=== PATIENT | male | born 1965 | race Caucasian/White ===

== ENCOUNTER → 2018-08-13 | Outpatient (CLI) | payer BC ==
--- NOTE | 2018-08-13 15:05 | KCIC ---
CT ABDOMEN PELVIS WO CONTRAST Indication: Left abdominal pain. Microscopic hematuria. Exposure: One or more of the following individualized dose reduction techniques were utilized for this examination: 1. Automated exposure control 2. Adjustment of the mA and/or kV according to patient size 3. Use of iterative reconstruction technique. Comparison: None are available. Technique: No intravenous contrast given. No oral contrast per request. Findings: Evaluation of solid viscera, bowel and vasculature is compromised by the noncontrast technique. Lung bases are clear. Liver and spleen are not enlarged. Pancreas unremarkable. No evidence of adrenal mass. Hypodense lesion of the lateral left kidney measures 2 Hounsfield units compatible with a cyst. No hydronephrosis. Tiny calcification or nonobstructive calculus just medial to this cyst. No ureteric calculus or dilatation. Gallbladder surgically absent. The aorta is mildly calcified without aneurysm. No significant lymph node enlargement. No significant small bowel distention no evidence of acute colitis. The appendix is normal. No ascites or pneumoperitoneum is identified. Central prostatic calcifications. Urinary bladder is not distended, may account for mild wall thickening. Degenerative changes of the spine, most severe at L4/L5. There is endplate irregularity at multiple levels likely developmental. There is spinal lateral recess and neural foraminal stenosis at L4-L5. There is also mild canal narrowing at other levels, may include a congenital component. No aggressive bone destruction. IMPRESSION: 1. Tiny calcification or nonobstructive calculus in the left kidney. No hydronephrosis or ureteric calculus. 2. Left renal lesion compatible with a cyst. 3. Degenerative spondylosis with stenosis, particularly at L4-L5. Electronically signed by: Jasmeet Handley MD (08/13/2018 3:02 PM) [facility]
== END | disposition home or self-care (01) ==
LOC: KCIC CT 12:43
PROVIDERS: ATTEND Family Medicine
DX: N20.0 Calculus of kidney (principal); M47.816 Spondylosis without myelopathy or radiculopathy, lumbar region; M48.061 Spinal stenosis, lumbar region without neurogenic claudication; M79.18 Myalgia, other site; R10.2 Pelvic and perineal pain
CPT/HCPCS: 74176

== ENCOUNTER → 2018-08-18 | Outpatient (CLI) | payer BC ==
--- NOTE | 2018-08-18 16:42 | RAD ---
MRI of the cervical spine without contrast 08/18/2018 CLINICAL HISTORY: Neck pain with bilateral arm weakness. TECHNIQUE: Unenhanced T1-weighted, T2-weighted and inversion recovery sagittal and gradient echo and T2-weighted axial images of the cervical spine were obtained. FINDINGS: Mild lateral curvature of the cervical spine is seen convex to the right. There is straightening of the normal cervical lordosis. Degenerative signal changes are seen involving all of the disks of the cervical spine. Degenerative signal changes are seen within the marrow surrounding these discs. Loss of height of the C3-4, C4-5, C5-6 and C6-7 discs is noted. Faint increased signal intensity is seen involving the right aspect of the cervical spinal cord on the T2-weighted and inversion recovery images at the C4-5 level consistent with cord edema or myelomalacia. This measures 8 mm in greatest diameter. At the C2-3 disc space is a mild generalized disc bulge. Superimposed on this disc bulge is a left paracentral focal disc protrusion. This measures 3 mm in AP diameter. Degenerative changes are seen involving the uncovertebral and facet joints bilaterally. These findings result in mild left-sided central spinal canal stenosis without evidence of cord impingement. No neural foraminal stenosis is seen. At the C3-4 disc space there is a moderate generalized disc bulge. Degenerative changes are seen involving the uncovertebral and facet joints, left greater than right. These findings efface the anterior and posterior CSF resulting in moderate central spinal canal stenosis with moderate cord impingement. Severe left greater than right neural foraminal stenosis is seen. At the C4-5 disc space there is a moderate generalized disc bulge. This is eccentric to the right. Degenerative changes are seen involving the uncovertebral and facet joints, right greater than left. These findings when combined result in moderate to severe right greater than left central spinal canal stenosis with moderate to severe right greater than left cord impingement. Moderate bilateral neural foraminal stenosis is seen. At the C5-6 disc space there is a mild to moderate generalized disc bulge. Degenerative changes are seen involving the uncovertebral and facet joints, right greater than left. These findings result in mild central spinal canal stenosis without evidence of cord impingement. Mild bilateral neural foraminal stenosis is seen. At the C6-7 disc space there is a mild generalized disc bulge. Superimposed on this disc bulge is a central/right paracentral disc osteophyte complex. This measures 3 mm in AP diameter. Degenerative changes are seen involving the uncovertebral and facet joints, right greater than left. These findings result in mild right-sided central spinal canal stenosis without evidence of cord impingement. Mild right neural foraminal stenosis is seen. The left neural foramen is patent. At the C7-T1 disc space there is a moderate generalized disc bulge. Degenerative changes are seen involving the uncovertebral and facet joints bilaterally. These findings do not result in significant central spinal canal stenosis. Mild to moderate bilateral neural foraminal stenosis is seen. IMPRESSION: Degenerative changes are seen throughout the cervical spine. These findings result in multilevel central spinal canal and neural foraminal stenosis of varying severity as discussed above. Increased signal intensity is seen involving the right aspect of the cervical spinal cord at the C4-5 level consistent with cord edema/myelomalacia. Electronically signed by: Goran Castaneda MD (08/18/2018 4:39 PM) [facility]
== END | disposition home or self-care (01) ==
LOC: MRI 15:18
PROVIDERS: ATTEND Family Medicine
DX: M50.21 Other cervical disc displacement, high cervical region (principal); M48.03 Spinal stenosis, cervicothoracic region; M47.813 Spondylosis without myelopathy or radiculopathy, cervicothoracic region; M25.78 Osteophyte, vertebrae; G24.9 Dystonia, unspecified
CPT/HCPCS: 72141

== ENCOUNTER → 2018-09-05 | Outpatient (CLI) | payer BC ==
[~2018-09-05] VITALS: Ht 182.9 cm; Wt 95.3 kg
[~2018-09-05] MED LIST: BACL10TA PO; GABA600T7 PO; LISI-338 PO; TRIH5TAB2 PO
[2018-09-05] MEDS: REGADENOSON 0.4 MG/5 ML DISP.SYRIN. IV ONE (09:39)
--- NOTE | 2018-09-05 11:32 | RAD ---
MR#: [id number] Date of Study: 09/05/2018 Ordering Physician: CINDY GERMAN, Referring Physician: JESSA GIL Tech: IVIS Soria ARRT (R) (N) APPROVED REPORT Test Type: Pharmacological Stress Nurse/Tech: Amy Larsen R.N. Test Indications: CASTILLO Cardiac History: HTN, athma Medications: See Electronic Medical Record Medical History: See Electronic Medical Record Resting ECG: SR Resting Heart Rate: 75 bpm Resting Blood Pressure: 106/75mmHg Pretest Chest Pain: No chest pain Nurse/Tech Notes S1S2, lungs CTA Consent: The procedure was explained to the patient in lay terms. Informed consent was witnessed. Mars eout was entered into [employer]). History and Stress Test performed by IVIS Soria ARRT (R) (N) Pharm. Details Pharmacologic stress testing was performed using 0.4mg per 5ml of regadenoson given intravenously ove r 7-10 seconds. Stress Symptoms slight SOA, feels "exhausted" POST EXERCISE Reason for Termination: Infusion complete Max HR: 109 bpm Max Blood Pressure: 151/85mmHg Blood Pressure response to exercise: Normal blood pressure response during stress. Heart Rate response to exercise: wnl Chest Pain: No. Arrhythmia: No. ST Change: No. INTERPRETATION Stress EKG Conclusion: Baseline EKG showed sinus rhythm. No ischemic changes at peak stress. No arr hythmias. Imaging Protocol IMAGE PROTOCOL: Rest Tc-99m/stress Tc-99m 1 day Rest: Stress: Viability: Radiopharm.Tc99m [id number] Sestamibi Dose10.5mCi 33mCi Img Date 09/05/2018 09/05/2018 Inj-Img [id number]. 60min. Rest Admin Site:IV - Right AntecubitalAdministrator:IVIS Soria ARRT (R)(N) Stress Admin Site: IV - Right AntecubitalAdministrator: RT Lucio (R)(N) STRESS DATA End Diast. Vol.112.0mlAv. Heart Rate86.0bpm End Syst. Vol.26.0mlCO Index BSA0.0L/min Myocardial Iure221.0gEject. Inntfuvd36.0% Stress Rates Pk. Fill Rate3.64EDV/secLVtime Pk. Fill 183.28msec Pk. Empty Rate4.99ESV/secLVtime Pk. Crwop872.53msec 1/3 Pk. Fill1.78EDV/sec Stress Scores Regional WT0.00Summed WT0.00 Regional WM0.00Summed WM2.00 Study quality was good. Left Ventricular size was Normal at Rest and Stress. Lung uptake was . Left Ventricular ejection fraction is 77%. The rest and stress images show normal perfusion, normal contraction and thickening. LV Perf. Quant 17 Seg. SSS0.00 17 Seg. SRS0.00 17 Seg. SDS0.00 Stress Defect Extent (% LAD)0.00Rest Defect Extent (% LAD)0.00Rev. Defect Extent (% LAD)0.00 Stress Defect Extent (% LCX) 0.00Rest Defect Extent (% LCX)0.00Rev. Defect Extent (% LCX)0.00 Stress Defect Extent (% RCA)0.00Rest Defect Extent (% RCA)0.00Rev. Defect Extent (% RCA)0.00 Stress Defect Extent (% LUIS CARLOS)0.00Rest Defect Extent (% LUIS CARLOS)0.00Rev. Defect Extent (% LUIS CARLOS)0.00 Conclusion 1. Regadenoson cardioisotope stress test did not show any evidence of ischemia or infarct. 2. Normal left ventricular systolic function with ejection fraction calculated at 77%. 3. Low risk for cardiac events. Signed by : Cindy German, Electronically Approved : 09/05/2018 11:32:10
== END | disposition home or self-care (01) ==
LOC: NM 08:07
PROVIDERS: ATTEND Internal Medicine Cardiovascular Disease
DX: R06.09 Other forms of dyspnea (principal); I10 Essential (primary) hypertension; J45.909 Unspecified asthma, uncomplicated
CPT/HCPCS: 78452; 93017; A9500; J2785

== ENCOUNTER → 2018-09-08 | Outpatient (CLI) | payer BC ==
[~2018-09-08] MED LIST changes: +BUPR150T15 PO; +GABA300C18 PO; +IOHEXOL 180 MG/ML 10 ML VIAL. ONE; +methylPREDNISolone ACETATE 40 MG/ML VIAL. ONE; +methylPREDNISolone ACETATE 80 MG/ML VIAL. ONE
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
== END ==
LOC: PNCL 11:00
PROVIDERS: ATTEND Anesthesiology
DX: M50.123 Cervical disc disorder at C6-C7 level with radiculopathy (principal); I10 Essential (primary) hypertension; K21.9 Gastro-esophageal reflux disease without esophagitis; Z87.39 Personal history of other diseases of the musculoskeletal system and connective tissue; Z90.49 Acquired absence of other specified parts of digestive tract; Z98.890 Other specified postprocedural states; Z72.89 Other problems related to lifestyle; Z87.891 Personal history of nicotine dependence
CPT/HCPCS: 62321; J1030; J1040; Q9965

== ENCOUNTER → 2018-10-03 | Outpatient (CLI) | payer BC ==
--- NOTE | 2018-10-04 02:27 | PAIN ---
DATE OF SERVICE: 10/03/2018 DIAGNOSES: 1. Cervical radiculopathy with cervical degenerative disk disease and cervical spinal stenosis. 2. Lumbar radiculopathy with lumbar degenerative disk disease. HISTORY OF PRESENT ILLNESS: The patient is a 53-year-old male who returns for followup status post cervical epidural steroid injection x 1. The patient reports only minimal decrease in the pain with some change in the paresthesias he was having in his upper extremities, slightly less intense on the left hand, but still intense on the right hand. The patient reports his left hand, however, is the worst. The patient reports the pain is aching, sharp, shooting, tight and dull and alternating in the neck and in the arm. It is radiating with some tingling, cramping and stabbing sensation in the arms as well, again worse on the left side than the right. The patient reports it is a 10 on a scale of 10 at its worst in the last week, 8 on average, 8 at its least, and is an 8 today. The patient reports no new motor or sensory deficits, no new bowel or bladder incontinence. It awakens him from sleep several times during the night especially if he is lying on his left side. The patient reports no new changes. No new bowel or bladder incontinence or other complaints. PHYSICAL EXAMINATION: VITAL SIGNS: The patient's blood pressure is 146/87, pulse 84, respirations 18, temperature 98.6 degrees Fahrenheit. Height 5 feet 10 inches, weight is 219 pounds. GENERAL: The patient is awake, alert, oriented, appropriate, very pleasant demeanor. HEENT: Head shows normocephalic, atraumatic. Extraocular movements are intact and symmetrical. Oral cavity: Mucous membranes moist and pink. Dentition is intact. NECK: Shows anterior throat supple without palpable lymphadenopathy noted. Swallow reflex symmetrical. CHEST: Shows normal on inspection. Breath sounds clear to auscultation bilaterally. HEART: Shows S1, S2 clear. No murmurs auscultated. ABDOMEN: Soft, nontender, nondistended. No palpable organomegaly is noted. No rebound or guarding is demonstrated. BACK: Shows spine grossly in the midline. Normal appearing thoracic kyphosis and cervical lordotic curvature. Lumbar lordotic curvature is slightly flattened as well. Cervical paraspinous muscle shows symmetrical on inspection. With palpation, has some moderate tenderness throughout the upper, middle and lower distribution of paraspinous muscles diffusely with firm and somewhat tight musculature bilaterally. This is true in the superomedial trapezius as well in both right and left without specific trigger points or radiation. The patient shows guarded rotational motion with some limited extension, but good forward flexion. Right and left lateral rotation is guarded as well with the patient rotating his upper body to move his head with the cervical rotation. EXTREMITIES: Upper extremities show deep tendon reflexes 2+ in the biceps and triceps tendons. Motor exam is approximately 3-4 on a scale of 5 with international manager strength in right and left upper extremities. Peripheral pulses are 2+ radial. No peripheral edema is noted. Options were discussed with the patient. The patient's old chart was reviewed as was his current medication regimen updated. Current review of systems updated today as well. We will proceed with a second cervical epidural steroid injection today with fluoroscopic guidance. Risks were again discussed including, but not limited to bleeding, infection, possibility of epidural hematoma, subsequent neurological compromise, dural puncture, headaches, spinal cord and/or nerve damage, side effects of steroid medication and poor results regarding pain control. The patient understands and wished to proceed. The patient will return to clinic in approximately 2 weeks for followup, was counseled on return appointment, activity level and side effects to be aware of. DIAGNOSES: Cervical radiculopathy with cervical degenerative disk disease and cervical spinal stenosis. PROCEDURE: Cervical epidural steroid injection, translaminar approach C6-C7 level using C-arm fluoroscopic guidance under sterile prep and drape using local anesthetic. MEDICATION INJECTED: A total of 120 mg Depo-Medrol plus 5 mL of preservative-free normal saline and 2 mL of contrast. CONDITION AT DISCHARGE: Stable. The patient tolerated the procedure well, had no complications. SAROJ SALDANA MD DR: EVIN/luis JOB#: [id number] / [id number]
== END ==
LOC: PNCL 09:54
PROVIDERS: ATTEND Anesthesiology
DX: M50.123 Cervical disc disorder at C6-C7 level with radiculopathy (principal); M48.02 Spinal stenosis, cervical region; M51.16 Intervertebral disc disorders with radiculopathy, lumbar region
CPT/HCPCS: 62321; J1030; J1040; Q9965

== ENCOUNTER → 2018-10-07 | Outpatient (CLI) | payer BC ==
[~2018-10-07] MED LIST changes: -IOHEXOL 180 MG/ML 10 ML VIAL. ONE; -methylPREDNISolone ACETATE 40 MG/ML VIAL. ONE; -methylPREDNISolone ACETATE 80 MG/ML VIAL. ONE
--- NOTE | 2018-10-07 11:08 | RAD ---
MR#: [id number] Date of Study: 10/07/2018 Ordering Physician: CINDY GERMAN, Referring Physician: CINDY GERMAN, Tech: SERGO Lozada, RDDC, T APPROVED REPORT Patient Location : OUT-PATIENT Indications Lower Extremity Pain : Bilateral Risk Factors HTN Findings Grayscale images of the bilateral saphenofemoral junctions do not reveal any obvious evidence of thro mbus. The right great saphenous vein measures 7 mm and the left great saphenous vein measures 8.2 mm Bilateral greater saphenous veins do not show any evidence of reflux. Bilateral lesser saphenous veins do not show any evidence of reflux Critical Notification Critical Value: No <Conclusion> 1. Negative for reflux in the bilateral greater and lesser saphenous veins Signed by : Dhruv Marshall, Electronically Approved : 10/07/2018 11:07:27
--- NOTE | 2018-10-07 11:10 | RAD ---
MR#: [id number] Date of Study: 10/07/2018 Ordering Physician: CINDY GERMAN, Referring Physician: CINDY GERMAN, Tech: SERGO Lozada, RDMS, RVT APPROVED REPORT Patient Location: OUT-PATIENT Indications Rest Pain:Bilaterally Risk Factors Hypertension VELOCITY AND DOPPLER WAVEFORM ANALYSIS RIGHT cm/secWaveformSeverity LEFT cm/secWaveform Severity pCFA 98.3TriphasicpCFA 103.7Triphasic Prof Fem Art. 55.5Prof Fem Art. 66.2 Fem Art Prox. 91.8TriphasicFem Art Prox. 79.3Triphasic Fem Art Mid. 103.4TriphasicFem Art Mid. 82.6Triphasic Fem Art Dist. 55.0TriphasicFem Art Dist. 73.3Triphasic Pop Art(Fossa) 61.1TriphasicPop Art(AK) 68.8Triphasic LANGUAGE ARTS TEACHER Dist. 68.8TriphasicPTA Dist. 62.6Triphasic Per Art Dist.40.5TriphasicPer Art Dist.42.1Triphasic DAYSI Dist. 65.7TriphasicATA Dist. 55.3Triphasic DPA 76MonophasicDPA 85Monophasic Findings Grayscale images the bilateral lower extremity arterial vessels reveals mild diffuse plaque. Normal spectral waveforms and velocities are obtained from the common femoral arteries to the below-k nee vessels. Normal velocities in the dorsalis pedis arteries with monophasic velocities likely sugge stive of chronic calcific disease. No high-grade focal stenosis. Critical Notification Critical Value: No <Conclusion> 1. Negative for any significant lower extremity arterial disease Signed by : Dhruv Marshall, Electronically Approved : 10/07/2018 11:09:09
== END | disposition home or self-care (01) ==
LOC: US 09:19
PROVIDERS: ATTEND Internal Medicine Cardiovascular Disease
DX: I70.293 Other atherosclerosis of native arteries of extremities, bilateral legs (principal)
CPT/HCPCS: 93925; 93970

== ENCOUNTER → 2018-10-07 | Outpatient (CLI) | payer BC ==
--- NOTE | 2018-10-07 14:20 | CARD ---
MR#: [id number] Date of Study: 10/07/2018 Ordering Physician: CINDY GERMAN, Referring Physician: CINDY GERMAN Tech: Tamia Benoit RDCS APPROVED REPORT EXAM: Two-dimensional and M-mode echocardiogram with Doppler and color Doppler. Other Information Quality : Good INDICATION Dyspnea on Exertion 2D DIMENSIONS RVDd2.9 (2.9-3.5cm)Left Atrium(2D)3.6 (1.6-4.0cm) IVSd0.9 (0.7-1.1cm)Aortic Root(2D)2.8 (2.0-3.7cm) LVDd4.7 (3.9-5.9cm)LVOT Diameter2.0 (1.8-2.4cm) PWd0.9 (0.7-1.1cm)LVDs3.0 (2.5-4.0cm) FS (%) 35.6 %SV65.8 ml LVEF(%)60.0 (>50%) Aortic Valve AoV Peak Nik.171.0cm/sAoV VTI28.4cm AO Peak GR.11.7mmHgLVOT Peak Nik.174.9cm/s AO Mean GR.7mmHgAVA (VMAX)3.24cm2 JACINTO (VTI)3.40cm2 Mitral Valve MV E Xemmlgbm840.4cm/sMV DECEL AYHU506xb MV A Jabmbgyq445.8cm/sE/A Ratio1.0 Pulmonary Vein S1 Weuypobl49.7cm/sD2 Knnjaiba26.3cm/s LEFT VENTRICLE The left ventricle is normal size. There is normal left ventricular wall thickness. The left ventricu lar systolic function is normal. The Ejection Fraction is 60-65%. There is normal LV segmental wall m otion. The left ventricular diastolic function and filling is normal for age. RIGHT VENTRICLE The right ventricle is normal size. The right ventricular systolic function is normal. ATRIA The left atrium size is normal. The right atrium size is normal. The interatrial septum is intact wit h no evidence for an atrial septal defect or patent foramen ovale as noted on 2-D or Doppler imaging. AORTIC VALVE The aortic valve is calcified but opens well. Doppler and Color Flow revealed no significant aortic r egurgitation. There is no significant aortic valvular stenosis. MITRAL VALVE The mitral valve is calcified but opens well. There is no evidence of mitral valve prolapse. There is no mitral valve stenosis. Doppler and Color Flow revealed no mitral valve regurgitation noted. TRICUSPID VALVE The tricuspid valve is normal in structure and function. Doppler and Color Flow revealed no tricuspid valve regurgitation noted. There is no tricuspid valve stenosis. PULMONIC VALVE The pulmonic valve is not well visualized. Doppler and Color Flow revealed no pulmonic valvular regur gitation. There is no pulmonic valvular stenosis. GREAT VESSELS The aortic root is normal in size. The ascending aorta is normal in size. The IVC is normal in size a nd collapses >50% with inspiration. PERICARDIAL EFFUSION There is no evidence of significant pericardial effusion. Critical Notification Critical Value: No <Conclusion> The left ventricular systolic function is normal. The Ejection Fraction is 60-65%. There is normal LV segmental wall motion. There is no evidence of significant pericardial effusion. Signed by : Cindy German, Electronically Approved : 10/07/2018 14:19:30
== END | disposition home or self-care (01) ==
LOC: ECHO 13:00
PROVIDERS: ATTEND Internal Medicine Cardiovascular Disease
DX: I08.0 Rheumatic disorders of both mitral and aortic valves (principal)
CPT/HCPCS: 93306

== ENCOUNTER → 2018-10-20 | Outpatient (CLI) | payer BC ==
[~2018-10-20] MED LIST changes: +GABA-585 PO; +METF500T16 PO
--- NOTE | 2018-10-20 21:07 | PAIN ---
DATE OF SERVICE: 10/20/2018 PROGRESS NOTE FOR PAIN CLINIC DIAGNOSES: 1. Cervical radiculopathy with cervical degenerative disk disease and cervical spinal stenosis. 2. Lumbar radiculopathy with lumbar degenerative disk disease. HISTORY OF PRESENT ILLNESS: The patient is a 53-year-old male who returns for followup status post cervical epidural steroid injections x 2. The patient reports only minimal decrease in pain, and in fact, the pain has been getting worse after his second injection in the base of the neck and shoulders and tremor increased in his left arm and hand, also pain in the right shoulder across the back, in the low part of the neck and also in the low back and legs, but his main complaint is neck and arm pain. The patient reports it is a 10 on a scale of 10 at all times, average, worst and least; sharp, dull type, shooting, described as tingling, burning, cramping and stabbing; constant, becoming severe and unbearable, disturbing his sleep, sporadically awakening him from sleep. The patient reports no loss of motor function but significant tremor increasing in the left arm as well as pain in both hands with numbness, pain and tingling progressing and becoming more intolerable in both the upper extremities. The patient reports no other changes. PHYSICAL EXAMINATION: VITAL SIGNS: The patient's blood pressure 131/92, pulse 93, respirations 16, temperature 98.0 degrees Fahrenheit and weight is 217 pounds. GENERAL: The patient is awake, alert, oriented, appropriate, very pleasant demeanor. HEENT: Shows normocephalic, atraumatic. Extraocular movements are intact and symmetrical. Oral cavity: Mucous membranes moist and pink. Dentition is intact. NECK: Shows anterior throat supple. CHEST: Shows normal on inspection. Breath sounds clear to auscultation bilaterally. HEART: Shows S1, S2 clear. No murmurs auscultated. ABDOMEN: Soft, nontender and nondistended. BACK: Shows spine grossly in the midline. Cervical paraspinous muscle shows symmetrical on inspection. On palpation, some moderate tenderness diffusely throughout the upper, middle and lower distribution of the paraspinous muscles. The patient has good rotational motion of cervical spine, both laterally as well as extension and flexion without significant increase in pain with any rotation. EXTREMITIES: Upper extremities show deep tendon reflexes 2+ in the biceps and triceps tendons. Motor exam is approximately 3-4 on a scale of 5 with bilateral stocklayer strength and 3-4/5 with bicep and tricep flexion as well and symmetrical. Peripheral pulses are 2+ in radial distribution. No peripheral edema is noted. Options were discussed with the patient. The patient's old chart was reviewed as his current medication regimen updated. Current review of systems updated today as well. We will make referral back for neurosurgical evaluation as the patient has seen Dr. Dinesh Jenkins once before, would like to see him again as he is not getting better with the current plan and treatment after 2 cervical epidural steroid injections. In fact, the pain is somewhat worse on the left side. We will make these arrangements for him and the patient will followup as scheduled. SAROJ SALDANA MD DR: EVIN/luis JOB#: [id number] / [id number]
== END | disposition home or self-care (01) ==
LOC: PNCL 10:27
PROVIDERS: ATTEND Anesthesiology
DX: M51.16 Intervertebral disc disorders with radiculopathy, lumbar region (principal); M50.10 Cervical disc disorder with radiculopathy, unspecified cervical region; M48.02 Spinal stenosis, cervical region
CPT/HCPCS: G0463

== ENCOUNTER → 2018-12-01 | Outpatient (CLI) | payer BC ==
[~2018-12-01] MED LIST changes: +CANN100S PO; +NAPR220T70 PO; +OMEP20CA10 PO
[2018-12-01 09:57] LABS: BASO % 1 % (0-3); EOS # 0.2 x10^3/uL (0.0-0.7); EOS % 3 % (0-3); HEMATOCRIT 44.6 % (39.0-53.0); HEMOGLOBIN 15.9 g/dL (13.0-17.5); LYMPH # 2.6 x10^3/uL (1.0-4.8); LYMPH % 35 % (24-48); MEAN CORPUSCULAR HEMOGLOBIN 34 pg (25-35); MEAN CORPUSCULAR HGB CONC 36 g/dL (31-37); MEAN CORPUSCULAR VOLUME 95 fL (79-100); MONO # 0.6 x10^3/uL (0.0-1.1); MONO % 8 % (0-9); NEUT # 4.2 x10^3/uL (1.8-7.7); NEUT % 55 % (31-73); PLATELET COUNT 264 x10^3/uL (140-400); RED BLOOD COUNT 4.71 x10^6/uL (4.30-5.70); WHITE BLOOD COUNT 7.6 x10^3/uL (4.0-11.0)
[2018-12-01 10:10] LABS: ALBUMIN 3.9 g/dL (3.4-5.0); ALBUMIN/GLOBULIN RATIO 1.2 (1.0-1.7); CREATININE 0.8 mg/dL (0.7-1.3); GFR 101.1; POTASSIUM 4.2 mmol/L (3.5-5.1); TOTAL BILIRUBIN 0.4 mg/dL (0.2-1.0); TOTAL PROTEIN 7.2 g/dL (6.4-8.2)
== END | disposition home or self-care (01) ==
LOC: SURGPAT 08:50
PROVIDERS: ATTEND Neurological Surgery
DX: Z01.818 Encounter for other preprocedural examination (principal); M48.02 Spinal stenosis, cervical region; M54.12 Radiculopathy, cervical region
CPT/HCPCS: 36415; 80053; 85025; 87641

== ENCOUNTER 2018-12-19 06:52 | Observation (INO) | payer BC ==
[~2018-12-19] VITALS: Ht 177.8 cm; Wt 102.6 kg
[2018-12-19] VITALS (9 sets, daily range): BP systolic 138–172; BP diastolic 85–105
[~2018-12-19 06:52] MED LIST changes: +BACITRACIN 50,000 UNIT in IV NORMAL SALINE 1000ML BAG 1,000 ML IRR ONE
[2018-12-19] MEDS ORDERED: IV RINGERS,LACTATED 1000ML 1,000 ML IV SCH (07:00)
[2018-12-19] MEDS ORDERED: fentaNYL PF VIAL 100 MCG/2 ML VIAL IV PRN ×2 (07:00)
[2018-12-19] MEDS ORDERED: LIDOCAINE 1% PF 2 ML VIAL. ID PRN (07:00)
[2018-12-19] MEDS ORDERED: ONDANSETRON PF 4 MG/2 ML VIAL. IV PRN ×2 (07:00→10:30)
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
[2018-12-19] MEDS ORDERED: THROMBIN TOPICAL 20,000 UNIT SPRAY.SYRN KIT TP ONE (07:07)
[2018-12-19] MEDS ORDERED: GELATIN SPONGE SIZE 12-7MM SPONGE. ONE ×2 (07:07)
[2018-12-19] MEDS ORDERED: PROPOFOL 20 ML IV ONE (07:59)
[2018-12-19] MEDS ORDERED: REMIFENTANIL 2 MG VIAL. IV ONE (07:59)
[2018-12-19] MEDS ORDERED: ONDANSETRON PF 4 MG/2 ML VIAL. ONE (07:59)
[2018-12-19] MEDS ORDERED: LIDOCAINE 2% PF 5 ML VIAL. ONE (07:59)
[2018-12-19] MEDS ORDERED: ROCURONIUM 50 MG/5 ML VIAL. ONE (07:59)
[2018-12-19] MEDS ORDERED: fentaNYL PF VIAL 100 MCG/2 ML VIAL ONE ×2 (07:59→13:47)
[2018-12-19] MEDS ORDERED: DEXAMETHASONE SOD PHOS 20 MG/5 ML VIAL. ONE (07:59)
[2018-12-19] MEDS ORDERED: SUCCINYLCHOLINE 200 MG/10 ML VIAL. ONE (07:59)
[2018-12-19] MEDS ORDERED: GLYCOPYRROLATE 1 MG/5 ML VIAL. ONE (08:00)
[2018-12-19] MEDS ORDERED: BUPIVACAINE-EPI 0.5%-1:200000 MPF 30 ML VIAL. INJ ONE (08:00)
[2018-12-19] MEDS ORDERED: MIDAZOLAM HCL/PF 2 MG/2 ML VIAL. ONE (08:06)
[2018-12-19] MEDS ORDERED: PROPOFOL 50 ML IV ONE ×3 (08:06→12:24)
[2018-12-19] MEDS ORDERED: KETAMINE HCL IN NACL, ISO-OSM 50 MG/5 ML SYRINGE ONE (09:04)
[2018-12-19] MEDS: POTASSIUM CL 20MEQ D5-0.45NACL 1,000 ML IV SCH ×2 (10:23→23:43)
[2018-12-19] MEDS ORDERED: PHENYLEPHRINE 10 MG/ML VIAL. ONE (10:25)
[2018-12-19] MEDS ORDERED: ACETAMINOPHEN 325 MG TABLET. PO PRN (10:30)
[2018-12-19] MEDS ORDERED: diphenhydrAMINE HCL 25 MG CAPSULE PO PRN (10:30)
[2018-12-19] MEDS ORDERED: MAG HYDROX/ALUMINUM HYD/SIMETH 30 ML ORAL.SUSP PO PRN (10:30)
[2018-12-19] MEDS ORDERED: NALOXONE 0.4 MG/ML VIAL. IV PRN (10:30)
[2018-12-19] MEDS ORDERED: CALCIUM CARBONATE 500 MG TAB.CHEW PO PRN (10:30)
[2018-12-19] MEDS ORDERED: 0.9 % SODIUM CHLORIDE 10 ML DISP.SYRIN. IV PRN (10:30)
[2018-12-19] MEDS ORDERED: MAGNESIUM HYDROXIDE 2,400 MG/30 ML ORAL.SUSP. PO PRN (10:30)
[2018-12-19] MEDS ORDERED: ZOLPIDEM 5 MG TABLET. PO PRN (10:30)
[2018-12-19] MEDS ORDERED: HYDROcodone/APAP 7.5/325MG 1 TAB TABLET PO PRN (10:30)
[2018-12-19] MEDS: PANTOPRAZOLE 40 MG TABLET.DR. PO SCH (11:30)
[2018-12-19] MEDS ORDERED: ceFAZolin 2GM PREMIX 2 GM/50 ML BAG IV ONE (12:00)
[2018-12-19] MEDS ORDERED: 0.9 % SODIUM CHLORIDE 20 ML VIAL. IJ ONE (12:50)
[2018-12-19] MEDS ORDERED: DESFLURANE > 120 MINUTES IH ONE (13:11)
[2018-12-19] MEDS ORDERED: hydrALAZINE 20 MG/ML VIAL. ONE ×3 (13:11→14:42)
[2018-12-19] MEDS ORDERED: PROCHLORPERAZINE 10 MG/2 ML VIAL. ONE (13:48)
[2018-12-19] MEDS ORDERED: HYDROmorphone 2 MG/ML VIAL ONE ×2 (13:56→15:34)
[2018-12-19] MEDS: PROCHLORPERAZINE 10 MG/2 ML VIAL. IV PRN ×2 (13:59→15:25)
[2018-12-19] MEDS: HYDROmorphone 2 MG/ML VIAL IV PRN ×6 (14:01→15:50)
[2018-12-19] MEDS ORDERED: HYDR20VI5 IJ (14:48)
[2018-12-19] MEDS ORDERED: hydrALAZINE 20 MG/ML VIAL. IVP ONE (15:00)
[2018-12-19] MEDS ORDERED: MORPHINE SULFATE 2 MG/ML VIAL. ONE (15:01)
[2018-12-19] MEDS: MORPHINE SULFATE 2 MG/ML VIAL. IV PRN ×2 (15:03→15:23)
[2018-12-19] MEDS ORDERED: HYDROmorphone 2 MG/ML VIAL IV PRN (15:45)
--- NOTE | 2018-12-19 16:00 | NUR ---
Arrived to unit by bed from PACU. Drowsy but awakens easily. Pain level at "8" on pain scale 1-10. C/o being hot. Cold wash clothes applied to forehead. Ice pack to neck and got fan. Able to move all extremities, warm touch, radial and pedal pulses + bilaterally. Still has numbness both hands and weak lab analyst 3/5. Dressing right side neck is d/i and is wearing soft collar. IVF's intact and infusing. SLADE's on bilaterally. O2 at 3l per n/c. Side rails up x's 2 with call light in reach. Family at bedside. Cont. monitor.
[2018-12-19] MEDS: ceFAZolin SODIUM IV Push 1 GM VIAL. IVP SCH (17:36)
[2018-12-19] MEDS: fentaNYL PF VIAL 100 MCG/2 ML VIAL IVP PRN ×2 (17:44→23:19)
[2018-12-19] MEDS: METHOCARBAMOL 750 MG TABLET PO PRN (19:48)
[2018-12-19] MEDS: HYDROcodone/APAP 7.5/325MG 1 TAB TABLET PO PRN (19:49)
[2018-12-19] MEDS: DOCUSATE SODIUM 100 MG CAPSULE. PO SCH (21:00)
[2018-12-20] MEDS: ceFAZolin SODIUM IV Push 1 GM VIAL. IVP SCH ×2 (02:00→09:37)
[2018-12-20 03:11] VITALS: BP 130/87
[2018-12-20] MEDS: fentaNYL PF VIAL 100 MCG/2 ML VIAL IVP PRN ×4 (03:28→12:32)
[2018-12-20] MEDS: METHOCARBAMOL 750 MG TABLET PO PRN (06:36)
[2018-12-20 07:00] VITALS: BP 145/87
[2018-12-20] MEDS: PANTOPRAZOLE 40 MG TABLET.DR. PO SCH ×2 (07:14→07:15)
[2018-12-20] MEDS ORDERED: DOCU100C28 PO (08:31)
[2018-12-20] MEDS ORDERED: METH750T2 PO (08:31)
[2018-12-20] MEDS ORDERED: HYDR-2765 PO (08:31)
--- NOTE | 2018-12-20 08:32 | DISCH ---
DISCHARGE INSTRUCTIONS Condition on Discharge Condition on Discharge: Stable Activity After Discharge Activity Instructions for Disc: Activity as tolerated, Avoid exertion Other activity instructions: soft collar when up for comfort Bathing Instructions: Shower-keep dressing dry Lifting Instructions after Dis: No heavy lifting, No pulling or pushing, Do not lift >10 pounds Driving Instructions after Dis: No driving for 2 weeks Diet after Discharge Additional Diet Restrictions: resume home diet Wound Incision Care Wound/Incision Care: Ice to area for comfort Other wound/incision instructi: may remove dressing 12/21 if dry then shi domingo soaking Contacting the DRMatt after DC Call your doctor for: Concerns you may have Follow-Up Follow up with: Dr. Armstrong's nurse in 2 weeks [phone] ANH ARMSTRONG MD Dec 20, 2018 08:32
[2018-12-20] MEDS: HYDROcodone/APAP 7.5/325MG 1 TAB TABLET PO PRN (09:26)
[2018-12-20] MEDS: DOCUSATE SODIUM 100 MG CAPSULE. PO SCH (09:26)
[2018-12-20 11:00] VITALS: BP 158/92
--- NOTE | 2018-12-20 12:52 | NUR ---
Discharge Note: [facility] [address] [place] [address] Discharge instructions and discharge home medications reviewed with Patient and a copy given. All questions have been answered and understanding verbalized. The following instructions and handouts were given: Diet, activity, medication list and follow up instructions provided to patient. Discontinued lines and drains: Peripheral IV discontinued and catheter intact. Patient discharged to Home or Self Care with Spouse via Wheelchair
--- NOTE | 2018-12-23 16:06 | PATHOLOGY ---
[facility] Accession Number: [id number] . 01 Material submitted: . vertebral column - CERVICAL DISC . 01 Clinical history: . Cervical stenosis, radiculopathy . 02 Diagnosis: Cartilaginous tissue, "cervical disc C3-4, C4-5": - Fragments of cartilage and bone consistent with disc material. (SHA:ophthalmic tech; 12/23/2018) MBR 12/23/2018 1251 Local . 02 Electronically signed: . Thony Mills MD, Pathologist NPI- [id number] . 01 Gross description: . Received in formalin labeled "Eduard, Julius, cervical disc," are several pieces of glistening, fibrous tissue measuring 2.9 x 2.5 x 0.3 cm in aggregate dimensions, containing small fragments of possible bone. The tissue is submitted representatively in cassette A1, following decalcification. (TSD; 12/22/2018) TOB/TOB 12/22/2018 1755 Local . 02 Pathologist provided ICD-10: M48.02, M54.12 . 02 CPT . 106655, 214362 Specimen Comment: A courtesy copy of this report has been sent to Specimen Comment: [phone]. Specimen Comment: Report sent to Performed at: 01 [facility] [address], [place] [id number] MD Wesly Sylvester MD Phone: [phone] Performed at: 02 [facility] [address] [place], [place] [id number] MD Alexey Lopez MD Phone: [phone]
--- NOTE | 2019-01-02 12:16 | OP ---
DATE OF SURGERY: 12/19/2018 PREOPERATIVE DIAGNOSES: Cervical spinal stenosis and cervical radiculopathy/myelopathy C3-C4, C4-C5. POSTOPERATIVE DIAGNOSES: Cervical spinal stenosis and cervical radiculopathy/myelopathy C3-C4, C4-C5. OPERATION PERFORMED: Anterior cervical microdiscectomy C3-C4, C4-C5. Anterior cervical interbody fusion C3-C4, C4-C5. Anterior cervical plate, C3, C4, C5. The operation was done with multimodality monitoring, including EMG, SSEP, NIMS, motor evoked potentials. Fluoroscopy and microscopy were also used. The interbody fusion cage was placed with allograft and autograft bone. SURGEON: Dinesh Armstrong M.D. CHIEF ELECTRICIAN: DELON Sanders, assisted with the surgery. She assisted with the decompression and interbody fusion. OPERATIVE INDICATIONS: The patient is a very pleasant 53-year-old man, who developed intractable neck and predominantly left arm pain along with unsteadiness with walking. He had the above-mentioned findings on MRI scanning and I recommended a 2-level anterior cervical microdiscectomy and fusion. He understood the surgery as well as the risks involved. He understood the expected postoperative course and he wished to go ahead. DESCRIPTION OF PROCEDURE: Following general endotracheal anesthesia, the patient was positioned supine on the operating room table. The anterior cervical region was then prepped and draped in the standard fashion. SLADE hose and AV impulse boots were applied for DVT prophylaxis. A microscope was draped. Fluoroscopy was draped and brought into the field. Monitoring was established. Ancef 2 grams given less than 1 hour prior to initiation of the surgery. Using fluoroscopic guidance, incision was made from the midline around toward the right side in a skin crease. I dissected down through skin and subcutaneous tissue. I dissected around the medial aspect of the sternocleidomastoid and carotid artery sheath down the anterior cervical vertebral body and I reflected the trachea and esophagus contralaterally. I placed micro disc retractors, wedged in the longus colli muscle. I placed distraction pins in the mid body of C4 and C5. I brought in the microscope during at this time. Through the microscope with microscopic technique, I gently incised the anterior annulus. I distracted gently and performed discectomy with pituitary rongeurs. I drilled the anterior spurring and saved that bone to mix with allograft bone for the interbody fusion. I then used the endplate scraper and scraped the cartilaginous endplate as well as removed disc down to the posterior aspect of the bone. I drilled the posterior spurring and then opened the ligament and annulus with a 1 and 2-mm micro Kerrison as well as the arachnoid knife. I worked laterally bilaterally and I assured myself that the foramina were open. I then measured and placed an interbody fusion cage, which was packed with allograft and autograft bone. I removed the pin from the C5 and slid the retractor up to C3-C4 and performed the identical operation at C3-C4. I removed the pins and then placed an anterior plate using the [employer]ine system. I placed 14-mm pins superiorly and inferiorly first and then the remaining screws were placed and the system was locked. Prior to placement of the interbody fusion cages, I did assure myself of perfect hemostasis. I removed the retractors and explored carefully. I did Valsalva the patient and I assured myself that there was perfect hemostasis. I irrigated copiously. I closed the wound in layers with absorbable suture and the skin was closed with a 4-0 subcuticular stitch. The operation went very well and the patient taken to recovery room in excellent condition with normal strength. I was quite pleased with the surgery. DINESH ARMSTRONG MD DR: MEKA/luis JOB#: [id number] / [id number] MAGALI
== END 2018-12-20 11:55 | disposition home or self-care (01) ==
LOC: SURG 06:52 → 4 NORTH 14:10
PROVIDERS: ADMIT Neurological Surgery; ATTEND Neurological Surgery
DX: M54.12 Radiculopathy, cervical region (principal); M48.02 Spinal stenosis, cervical region; J45.909 Unspecified asthma, uncomplicated; I10 Essential (primary) hypertension; M19.90 Unspecified osteoarthritis, unspecified site; G24.9 Dystonia, unspecified; G56.00 Carpal tunnel syndrome, unspecified upper limb; M47.899 Other spondylosis, site unspecified; Z82.49 Family history of ischemic heart disease and other diseases of the circulatory system; Z83.3 Family history of diabetes mellitus; Z87.442 Personal history of urinary calculi; V29.9XXA Motorcycle rider (driver) (passenger) injured in unspecified traffic accident, initial encounter; Z87.891 Personal history of nicotine dependence; Z90.49 Acquired absence of other specified parts of digestive tract
CPT/HCPCS: 20931; 20937; 22554; 22585; 22853; 76000; 88304; 88311; 96374; 96375; 96376; 97116; 97162; 97530; A7015; C1713; C9359; G0378; G0379; J0330; J0360; J0690; J0696; J0780; J1100; J1170; J2001; J2250; J2270; J2405; J2704; J3010; J3490; J7030

== ENCOUNTER → 2019-03-30 | Outpatient (CLI) | payer OTHER ==
[~2019-03-30] MED LIST changes: -BACITRACIN 50,000 UNIT in IV NORMAL SALINE 1000ML BAG 1,000 ML IRR ONE; +DOCU100C28 PO; +HYDR-2765 PO; +HYDR20VI5 IJ; +METH750T2 PO; -OMEP20CA10 PO; +OMEP20CA16 PO
--- NOTE | 2019-03-30 18:08 | KCIC ---
Examination: CERVICAL SPINE 2-3V History: Cervical spine fusion Comparison/Correlation: 08/18/2018 MRI cervical spine without contrast Findings: Total 3 images of cervical spine were obtained. Plate and associated screws are evident from C3, C4, and C5. Intervertebral disc spacer material at C3-4 and C4-5 noted. Alignment is grossly within normal limits. Relative lack of lordosis of the cervical spine is noted. Severe disc space narrowing is present at C5-6. Moderate to severe C6-7 disc space narrowing is present. Soft tissues are grossly unremarkable. No fracture or bone destruction. Impression: Postoperative cervical spine fusion is present and unremarkable. There are advanced degenerative changes of the cervical spine are present. Electronically signed by: Walter Shelton MD (03/30/2019 6:04 PM) [facility]
== END | disposition home or self-care (01) ==
LOC: KCIC 10:19
PROVIDERS: ATTEND Neurological Surgery
DX: M43.22 Fusion of spine, cervical region (principal)
CPT/HCPCS: 72040

== ENCOUNTER → 2019-04-16 | Outpatient (CLI) | payer OTHER ==
--- NOTE | 2019-04-16 13:38 | KCIC ---
CERVICAL SPINE WO CONTRAST History: Cervical stenosis. Bilateral upper extremity numbness. Technique: Multiplanar, multi sequential noncontrast MR imaging was performed of the cervical spine. Comparison: August 18, 2018 Findings: Interval anterior stabilization and interbody fusion C3-C4 and C4-C5. Improved canal patency. Straightening of the normal cervical lordosis. Normal vertebral body height. No fracture. Multilevel degenerative endplate edema. T2 hyperintense signal within the lateral right aspect of the cervical cord at the C4-C5 level, most likely myelomalacia. C2-C3: Central disc protrusion. Mild cord flattening. No canal narrowing. Uncovertebral and facet arthropathy. Moderate right and mild left neuroforaminal narrowing. C3-C4: Intervertebral fusion. Mild canal narrowing and cord flattening. Uncovertebral and facet arthropathy. Severe left and moderate right neuroforaminal narrowing. C4-C5: Intervertebral fusion. Mild canal narrowing and cord flattening. Uncovertebral and facet arthropathy. Moderate with more prominent inferior bilateral neural foraminal narrowing. C5-C6: Posterior disc osteophyte complex. Mild cord flattening. Minimal canal narrowing. Uncovertebral and facet arthropathy. Moderate bilateral neural foraminal narrowing. C6-C7: Posterior disc osteophyte complex. Mild cord flattening. No canal narrowing. Uncovertebral and facet arthropathy. Mild to moderate bilateral neural foraminal narrowing. C7-T1: Posterior disc osteophyte complex. No canal narrowing. Uncovertebral and facet arthropathy. Moderate right and mild to moderate left neuroforaminal narrowing. 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 Upper thoracic spondylosis with facet arthropathy contributing to mild bilateral neural foraminal narrowing and mild cord flattening. Impression: 1. Interval anterior stabilization and interbody fusion C3-C4 and C4-C5. Improved canal patency compared to prior. 2. T2 hyperintense signal within the right aspect of the cervical cord at the C4-C5 level, most likely myelomalacia. 3. Additional advanced multilevel cervical and upper thoracic spondylosis, similar compared to prior. 4. Multilevel neural foraminal narrowing most prominent left C3-C4, unchanged compared to prior. Electronically signed by: Arben Mcclendon DO (04/16/2019 1:35 PM) [facility]
== END | disposition home or self-care (01) ==
LOC: KCIC MRI 11:26
PROVIDERS: ATTEND Neurological Surgery
DX: M48.02 Spinal stenosis, cervical region (principal); M12.88 Other specific arthropathies, not elsewhere classified, other specified site; M25.78 Osteophyte, vertebrae; M47.814 Spondylosis without myelopathy or radiculopathy, thoracic region
CPT/HCPCS: 72141

== ENCOUNTER → 2019-05-22 | Outpatient (CLI) | payer OTHER ==
--- NOTE | 2019-05-22 11:45 | PAIN ---
DATE OF SERVICE: 05/22/2019 PROGRESS NOTE FOR PAIN CLINIC DIAGNOSES: Cervical radiculopathy with cervical degenerative disk disease and cervical spinal stenosis and post-cervical laminectomy syndrome. HISTORY OF PRESENT ILLNESS: The patient is a 54-year-old male who returns for followup status post cervical epidural steroid injections, last seen 10/20/2018, patient did fairly well, but ended up with the surgery and anterior cervical fusion with his neurosurgeon. The patient reports after the surgery, he still had some pain, but the intensity was gone in the hands and the arms where he had been having jerky movements and the burning pain was decreased. The patient reports over the past few months though, 2-3 months, the pain is returning in the bilateral hands and wrists, especially in the elbow with the burning pain in the base of neck and shoulders. The patient reports it is tingling, burning, cramping, stabbing, becoming more aching and sharp in the neck, radiating and becoming more constant and severe in both the upper extremities in a radicular fashion into the anterior deltoid, anterior biceps, anterior forearm as well as posterior forearm with a burning, stinging sensation in all the fingers of both of the hands. The patient reports that 10 on a scale of 10 at its worst in the past week, 8 on average, 8 at its least and is 8 today. The patient reports no loss of motor function, but significant fatigability of both the upper extremities and decreased coordinator volunteer services strength bilaterally, but the patient has not been dropping items as he was prior to surgery. The patient reports it awakens him from sleep at least every 1-2 hours, does not cause any new deficits, but very frustrating with the pain and the burning sensation, especially in the arms and hands bilaterally with traveling down the arms. The patient reports his left hand shakes, but is doing much better after the surgery. PHYSICAL EXAMINATION: VITAL SIGNS: The patient's blood pressure 154/101, pulse 91, respirations 18, temperature 98.2 degrees Fahrenheit, height is 5 feet 10 inches, weight is 200 pounds. GENERAL: The patient is awake, alert, oriented, appropriate, very pleasant demeanor. HEENT: Head shows normocephalic, atraumatic. Extraocular movements are intact and symmetrical. Oral cavity: Mucous membranes moist and pink. Dentition is intact. NECK: Shows anterior throat supple without palpable lymphadenopathy noted. Swallow reflex symmetrical. CHEST: Shows normal on inspection. Breath sounds clear bilaterally. HEART: Shows S1, S2 clear. No murmurs auscultated. ABDOMEN: Soft, nontender, nondistended. No palpable organomegaly is noted. No rebound or guarding demonstrated. BACK: Shows spine grossly in the midline. Normal appearing thoracic kyphosis and cervical lordotic curvature slightly flattened. Cervical paraspinous muscle shows symmetrical on inspection, with palpation shows some moderate tenderness diffusely in the inferior aspect of the cervical paraspinous musculature bilaterally, but very tender with palpation. No specific trigger points, no radiation of pain is demonstrated. EXTREMITIES: The patient's upper extremities show deep tendon reflexes at 2+ in the biceps and triceps tendons. Motor exam is approximately 3-4 on a scale of 5 bilaterally with coordinator volunteer services strength, bicep and tricep flexion. Peripheral pulses are 2+ radial. No peripheral edema is noted. Options were discussed with the patient. The patient's old chart was reviewed as was his current medication regimen updated. Current review of systems updated today as well. We will preauthorize the patient for a cervical epidural steroid injection is clear bilateral radiculopathy at C6-C7 dermatomal distribution and done well with these injections in the past. We will wait for preauthorization. The patient will return to clinic after authorization is obtained. In the meantime, we will try Medrol Dosepak. The patient was given instruction as well as side effects to be aware of with the medication and will follow up after approval. We will plan on cervical epidural steroid injection at C6-C7 level, translaminar approach at that time. SAROJ SALDANA MD DR: EVIN/luis JOB#: [id number] / [id number]
== END | disposition home or self-care (01) ==
LOC: PNCL 07:29
PROVIDERS: ATTEND Anesthesiology
DX: M50.10 Cervical disc disorder with radiculopathy, unspecified cervical region (principal); M48.02 Spinal stenosis, cervical region; M96.1 Postlaminectomy syndrome, not elsewhere classified
CPT/HCPCS: G0463

== ENCOUNTER → 2019-06-05 | Outpatient (CLI) | payer OTHER ==
[~2019-06-05] MED LIST changes: +IOHEXOL 180 MG/ML 10 ML VIAL. ONE; +methylPREDNISolone ACETATE 40 MG/ML VIAL. ONE; +methylPREDNISolone ACETATE 80 MG/ML VIAL. ONE
--- NOTE | 2019-06-05 09:24 | PAIN ---
DATE OF SERVICE: 06/05/2019 PROGRESS NOTE FOR PAIN CLINIC DIAGNOSES: Cervical radiculopathy with cervical degenerative disk disease, cervical spinal stenosis and post-cervical laminectomy syndrome. HISTORY OF PRESENT ILLNESS: The patient is a 54-year-old male who returns for followup status post cervical epidural steroid injections x 2, last seen 10/03/2018. The patient had been doing well and had an anterior cervical diskectomy and fusion since that time, which did well initially, but the pain has been returning. He sees a neurosurgeon. We have seen him about 2 weeks ago for preauthorization for additional cervical epidural steroid injections. He has obtained that now and would like to proceed. The patient still reports pain in the base of the neck and upper extremities, shoulders bilaterally, slightly more on the left side than the right, radiating to the arm and hand as it was previously. The patient reports it is a 9 on a scale of 10 at its worst, 6 on average, 5 at its least and is a 6 today. The patient reports it is tingling, burning, aching, dull, sharp in the neck radiating to the arms, especially on the left side, becoming more constant, more severe with activity. We did try Medrol Dosepak after his last visit and he did report that it did decrease the pain about 50% temporarily. The patient reports no new motor or sensory deficits. Reports it does awaken him from sleep at night about every 3 hours or so over the past couple of days. The patient reports no new changes or other complaints. PHYSICAL EXAMINATION: VITAL SIGNS: The patient's blood pressure is 141/110, pulse 87, respirations 18, temperature 98.6 degrees Fahrenheit, weight is 231 pounds. GENERAL: The patient is awake, alert, oriented, appropriate, very pleasant demeanor. HEENT: Head shows normocephalic, atraumatic. Extraocular movements are intact and symmetrical. Oral cavity: Mucous membranes moist and pink. NECK: Shows anterior throat is supple. CHEST: Shows normal on inspection. Breath sounds are clear bilaterally. HEART: Shows S1, S2 clear. No murmurs auscultated. ABDOMEN: Soft, nontender, nondistended. No palpable organomegaly is noted. No rebound or guarding demonstrated. BACK: Shows spine grossly in the midline. Cervical lordotic curvature slightly flattened, with palpation shows some moderate tenderness diffusely, but symmetrical. Posterior cervical paraspinous musculature without specific trigger points, radiation or asymmetry. The patient does show good rotational motion of cervical spine, both laterally as well as extension and flexion without significant increase in pain or difficulty. EXTREMITIES: Upper extremities show deep tendon reflexes 2+ in the biceps and triceps tendons. 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 Bicep and tricep flexion is 4/5 bilaterally. Peripheral pulses are 2+ radial. No peripheral edema is noted. Options were discussed with the patient. The patient's old chart was reviewed as was his current medication regimen updated. Current review of systems was updated today as well and we will proceed with a cervical epidural steroid injection today with fluoroscopic guidance. Risks were again discussed including, but not limited to bleeding, infection, possibility of epidural hematoma, subsequent neurological compromise, dural puncture, headaches, spinal cord and/or nerve damage, side effects of steroid medication and poor results regarding pain control. The patient understands and wished to proceed. The patient will return to clinic in approximately 2 weeks for followup. He was counseled on return appointment, activity level and side effects to be aware of. DIAGNOSES: Cervical radiculopathy with cervical degenerative disk disease and cervical spinal stenosis and post-cervical laminectomy syndrome. PROCEDURE: Cervical epidural steroid injection, translaminar approach, C6-C7 level using C-arm fluoroscopic guidance under sterile prep and drape using local anesthetic. MEDICATION INJECTED: A total of 120 mg Depo-Medrol plus 5 mL of preservative-free normal saline and 2 mL of contrast. CONDITION AT DISCHARGE: Stable. The patient tolerated procedure well, had no complications. SAROJ SALDANA MD DR: EVIN/luis JOB#: [id number] / [id number]
== END ==
LOC: PNCL 07:58
PROVIDERS: ATTEND Anesthesiology
DX: M50.123 Cervical disc disorder at C6-C7 level with radiculopathy (principal); M48.02 Spinal stenosis, cervical region; M96.1 Postlaminectomy syndrome, not elsewhere classified
CPT/HCPCS: 62321; J1030; J1040; Q9965

== ENCOUNTER → 2020-02-08 | Outpatient (CLI) | payer OTHER ==
[~2020-02-08] MED LIST changes: -IOHEXOL 180 MG/ML 10 ML VIAL. ONE; -methylPREDNISolone ACETATE 40 MG/ML VIAL. ONE; -methylPREDNISolone ACETATE 80 MG/ML VIAL. ONE
--- NOTE | 2020-02-08 14:10 | RAD ---
EXAM: Chest, 2 views. HISTORY: Dyspnea. COMPARISON: None. FINDINGS: 2 views of the chest are obtained. There is no infiltrate, pleural effusion or pneumothorax. The heart is normal in size. There are healed left rib fractures. There is cervical spinal fusion instrumentation. IMPRESSION: No acute pulmonary finding. Electronically signed by: Yolie Odonnell MD (02/08/2020 2:07 PM) [facility]
== END ==
LOC: RAD 13:47
PROVIDERS: ATTEND Internal Medicine Critical Care Medicine
DX: R06.00 Dyspnea, unspecified (principal); M43.22 Fusion of spine, cervical region
CPT/HCPCS: 71046

== ENCOUNTER → 2020-04-13 | Outpatient (CLI) | payer OTHER ==
[~2020-04-13] MED LIST changes: -LISI-338 PO; +LISI-517 PO; +METH-562 PO; -METH750T2 PO; -TRIH5TAB2 PO; +TRIH5TAB3 PO
--- NOTE | 2020-04-14 10:08 | CARD ---
MR#: [id number] Date of Study: 04/13/2020 Ordering Physician: CINDY GERMAN, Referring Physician: CINDY GERMAN, Tech: Katrin Juarez, [facility] APPROVED REPORT EXAM: Two-dimensional and M-mode echocardiogram with Doppler and color Doppler. Other Information Quality : AverageHR: 101bpm INDICATION Hypertension/HCVD 2D DIMENSIONS RVDd2.8 (2.9-3.5cm)Left Atrium(2D)3.2 (1.6-4.0cm) IVSd1.1 (0.7-1.1cm)Aortic Root(2D)2.9 (2.0-3.7cm) LVDd5.2 (3.9-5.9cm)LVOT Diameter2.2 (1.8-2.4cm) PWd0.9 (0.7-1.1cm)LVDs3.0 (2.5-4.0cm) FS (%) 42.7 %SV93.2 ml LVEF(%)73.5 (>50%) Aortic Valve AoV Peak Nik.153.8cm/sAoV VTI24.2cm AO Peak GR.9.5mmHgLVOT Peak Nik.144.4cm/s LVOT VTI 21.70cmAO Mean GR.6mmHg JACINTO (VMAX)2.54ap5GXL (VTI)3.26cm2 Mitral Valve MV E Tgbowbcv09.4cm/sMV DECEL LMVG483vw MV A Hznzvgdn27.5cm/sMV CNZ38kj E/A Ratio0.8MVA (PHT)3.63cm2 TDI E/Lateral E'9.1E/Medial E'7.2 Pulmonary Valve PV Peak Huakerso785.0cm/sPV Peak Grad.5mmHg Pulmonary Vein S1 Vntdodlp07.4cm/sD2 Kvfpyqrh49.3cm/s PVa qqkmnpir229ealf LEFT VENTRICLE The left ventricle is normal size. There is normal left ventricular wall thickness. The left ventricu lar systolic function is normal and the ejection fraction is within normal range. The Ejection Fracti on is 60-65%. There is normal LV segmental wall motion. Transmitral Doppler flow pattern is Grade I-a bnormal relaxation pattern. RIGHT VENTRICLE The right ventricle is normal size. The right ventricle is mildly hypertrophied. The right ventricula r systolic function is normal. ATRIA The left atrium size is normal. The right atrium size is normal. The interatrial septum is intact wit h no evidence for an atrial septal defect or patent foramen ovale as noted on 2-D or Doppler imaging. AORTIC VALVE Not well visualized. Doppler and Color Flow revealed trace aortic regurgitation. There is no signific ant aortic valvular stenosis. Calculated aortic valve area is 3.0 cm2 with maximum pressure gradient of 13 mmHg and mean pressure gradient of 7 mmHg. MITRAL VALVE The mitral valve is normal in structure and function. There is no evidence of mitral valve prolapse. There is no mitral valve stenosis. Doppler and Color-flow revealed trace mitral regurgitation. TRICUSPID VALVE Not well visualized. Doppler and Color Flow revealed no tricuspid valve regurgitation noted. There is no tricuspid valve stenosis. PULMONIC VALVE The pulmonic valve is not well visualized. Doppler and Color Flow revealed trace pulmonic valvular re gurgitation. There is no pulmonic valvular stenosis. GREAT VESSELS The aortic root is normal in size. The IVC is normal in size and collapses >50% with inspiration. PERICARDIAL EFFUSION There is no evidence of significant pericardial effusion. Critical Notification Critical Value: No <Conclusion> The left ventricular systolic function is normal and the ejection fraction is within normal range. Th e Ejection Fraction is 60-65%. There is normal LV segmental wall motion. Signed by : Dhruv Marshall, Electronically Approved : 04/14/2020 10:08:22
== END ==
LOC: ECHO 14:14
PROVIDERS: ATTEND Internal Medicine Cardiovascular Disease
DX: I11.9 Hypertensive heart disease without heart failure (principal)
CPT/HCPCS: 93306